=== PATIENT | female | born 2005 | race Caucasian/White ===

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

== ENCOUNTER 2023-02-04 19:56 | Emergency (ER) | payer BC, MEDICAID, SELFPAY ==
[2023-02-04 20:02] VITALS: BP 128/75; PULSE 102; RESP 16; TEMP 36.7; O2SAT 99
--- NOTE | 2023-02-04 20:08 | W.ED.SKABFB ---
HPI - Skin/Abscess/Foreign Bdy General: Chief complaint: Skin/Abscess/Foreign Body Stated complaint: possible tattoo infection on left hand Time Seen by Provider: 02/04/23 20:08 History of Present Illness: 17-year-old female comes in today with redness and swelling to the left dorsal left hand at the site of a tattoo. Patient had a tattoo done 2 to 3 days ago. Patient has had increasing redness and swelling since then. Patient was concerned for infection due to increased pain of the dorsal index finger. Patient reports no fever. Patient denies any chronic medical problems. Associated symptoms: Deny fever(s) Review of Systems General: Reports: 10 or more systems reviewed and unremarkable except in HPI and below Const: Denies: fever(s) Skin/Breast: Reports: erythema PFSH ED PFSH: Social History Smoking and tobacco status: current every day smoker Physical Exam Const: COMMON NORMALS: alert HENMT: COMMON NORMALS: normocephalic HEAD & SCALP: normocephalic Neck/C-Spine: COMMON NORMALS: full ROM Resp: COMMON NORMALS: normal respiratory effort Cardio: COMMON NORMALS: regular rate RATE: regular rate Extremity: LEFT UPPER EXTREMITY: Yes hand & digits (Redness and swelling with tenderness along the lines of tattoo.) Neuro: SENSORIUM/ORIENTATION: Yes alert Skin: NARRATIVE SKIN EXAM: Redness to the tattoo with increased swelling dorsal left hand Course Vital Signs: Vital signs: Vital Signs Temperature 98.0 F 02/04/23 20:02 Pulse Rate 102 H 02/04/23 20:02 Respiratory Rate 16 02/04/23 20:02 Blood Pressure 128/75 02/04/23 20:02 Pulse Oximetry 99 02/04/23 20:02 Oxygen Delivery Me thod Room Air 02/04/23 20:02 MDM - Skin/Abscess/Foreign Bdy Medicial Decision Making 17-year-old female comes in with a probable wound infection to the dorsal left hand along a tattoo line. Patient has an area of the tattoo which has increased redness and swelling. Patient reports increased pain today. Differential diagnosis includes but not limited to local reaction to tattoo art, allergic reaction tattoo ink, wound infection. We will place patient on mupirocin ointment to the tattoo site, and oral Augmentin. Patient reported understanding of care plan and need for follow-up or return to the ER. No radiology studies performed this visit Discharge Plan Discharge Patient Disposition: Home Clinical Impression: Cellulitis Qualifiers: Site of cellulitis: extremity Site of cellulitis of extremity: upper extremity Laterality: left Qualified Code(s): L03.114 - Cellulitis of left upper limb Condition: Stable Prescriptions: New amoxicillin-pot clavulanate 875-125 mg tablet 1 tab PO BID Qty: 14 0RF No Action vit,waldo [id number] 28 mg iron- 1 mg tablet 1 tab PO DAILY Qty: 90 3RF Discharge Orders: Discharge ED (Routine); Ordered 02/04/23 Ordered By: Stanley Baltazar Discharge Diet: Usual diet Discharge Activity: Increase activity as tolerated Patient Instructions: Cellulitis (ED) Activity Restrictions/Additional Instructions: Clean the skin with mild soap and water twice a day. Apply antibiotic ointment after cleaning twice a day. Take oral antibiotics 1 tablet twice a day for the next 7 days. Drink plenty of water with medication. Follow-up with primary care for further instruction. Return to ER for worsening symptoms such as fever greater than 100.4, persistent nausea and vomiting, increasing redness and swelling to the hand. Coding Level of Care Code ED Insurance Sales Associate for Stephanie Ortiz
[2023-02-04] MEDS: amoxicillin-clav 875-125 mg Tablet 1 TAB PO (20:16)
[2023-02-04] MEDS: mupirocin oint 22 gm 1 APPLIC TOPICAL (20:16)
[2023-02-04 20:23] VITALS: PULSE 83; RESP 14; O2SAT 97
== END 2023-02-04 20:24 | disposition home or self-care (01) ==
PROVIDERS: Emergency Provider Nurse Practitioner Family
DX: L03.114 Cellulitis of left upper limb (principal); F17.210 Nicotine dependence, cigarettes, uncomplicated
CPT/HCPCS: 99283

== ENCOUNTER 2023-12-02 14:11 | Inpatient (IN) | payer BC, MEDICAID, SELFPAY ==
[2023-12-02 14:18] VITALS: BP 131/84; PULSE 97; RESP 14; TEMP 36.9; O2SAT 97
--- NOTE | 2023-12-02 14:30 | ED.C_ITS ---
HPI - Psych 2 General: Chief Complaint: Psychiatric Symptoms Stated Complaint: MHE Time Seen by Provider: 12/02/23 14:14 Source: patient Mode of arrival: ambulatory Limitations: no limitations History of Present Illness: 17-year-old female who states that she h as been severely depressed over the last week she states she feels like she is having a breakdown and wants to get help. States she has had passing thoughts of harming herself and feels like that will be better off without her but has no specific suicidal plan. She is not on any meds currently denies any worse improved factors Associated symptoms: Reports depression Review of Systems 2 Const: Denies: fever(s), chills, body aches or change in appetite ENMT: Denies: throat pain or dental pain Card: Denies: chest pain Resp: Denies: dyspnea GI: Denies: abdominal pain, nausea, vomiting or diarrhea Musc: Denies: neck pain or back pain Skin/Breast: Denies: rash Neuro: Denies: headache(s) Psych: Reports: depression [facility] ED 2 PFSH: Social History Smoking and tobacco/nicotine status: current every day tobacco/nicotine user Physical Exam 2 Const: COMMON NORMALS: no acute distress, patient oriented x3 and healthy appearing HENMT: COMMON NORMALS: normocephalic and atraumatic HEAD & SCALP: n ormocephalic and atraumatic Neck/C-Spine: COMMON NORMALS: full ROM and supple Chest: COMMONS NORMALS: normal inspection of the chest Resp: COMMON NORMALS: normal respiratory effort Cardio: COMMON NORMALS: regular rate, regular rhythm and No murmurs present (Cardio) RATE: regular rate RHYTHM: regular rhythm Extremity: COMMON NORMALS: normal to inspection Neuro: COMMON NORMALS: patient oriented x3, moves all extremities and no focal motor deficits Psych: COMMON NORMALS: mental status grossly normal, Normal thought process present and cooperative MOOD & AFFECT: Yes depressed mood THOUGHT PROCESS: Normal thought process present Skin: COMMON NORMALS: no rashes or lesions noted and no wounds GENERAL SKIN EXAM: no rashes or lesions noted Course 2 Vital Signs: Vital signs: Vital Signs Temperature 98.4 F 12/02/23 14:18 Pulse Rate 87 12/02/23 16:53 Respiratory Rate 14 12/02/23 14:18 Blood Pressure 134/83 12/02/23 16:53 Pulse Oximetry 100 12/02/23 16:53 Oxygen Delivery Me thod Room Air 12/02/23 16:53 MDM - Psych Medical Decision Making Patient presents for severe depression she voluntarily wants to be admitted to the psych weller she is medically cleared I spoke to Dr. Sinha will admit her at this time Medical Records I reviewed the patient's medical records. Lab Data I reviewed the patient's lab results. 12/02/23 14:31 12/02/23 14:31 Laboratory Results WBC 11.29 10^3/uL (4.5-13.0) 12/02/23 14:31 RBC 5.33 10^6/uL (3.85-5.65) 12/02/23 14:31 Hgb 15.50 g/dL (12.4-14.8) H 12/02/23 14:31 Hct 45.5 % (36-47) 12/02/23 14:31 MCV 85.4 fl (85-98) 12/02/23 14:31 MCH 29.1 pg (27-33) 12/02/23 14:31 MCHC 34.1 g/dL (30-55) 12/02/23 14:31 RDW 12.6 % (12.1-15.1) 12/02/23 14:31 Plt Count 295 10^3/cmm (157-399) 12/02/23 14:31 MPV 9.3 fL (7.4-10.4) 12/02/23 14:31 Neut % (Auto) 64.2 % 12/02/23 14:31 Lymph % (Auto) 24.1 % 12/02/23 14:31 [place] % (Auto) 7.5 % 12/02/23 14:31 Eos % (Auto) 3.3 % 12/02/23 14:31 Baso % (Auto) 0.7 % 12/02/23 14:31 Neut # (Auto) 7.25 10^3/uL (1.8-8.0) 12/02/23 14:31 Lymph # (Auto) 2.7 10^3/uL (1.5-6.5) 12/02/23 14:31 [place] # (Auto) 0.9 10^3/uL (0.2-0.9) 12/02/23 14:31 Eos # (Auto) 0.4 10^3/uL (0.0-0.8) 12/02/23 14:31 Baso # (Auto) 0.1 10^3/uL (0.0-0.1) 12/02/23 14:31 Nucleated RBC % (auto) 0 % 12/02/23 14:31 Nucleated RBCs # 0.0 /100WBC 12/02/23 14:31 Sodium 137 mmol/L (136-145) 12/02/23 14:31 Potassium 3.8 mmol/L (3.5-5.1) 12/02/23 14:31 Chloride 101 mmol/L (98-107) 12/02/23 14:31 Carbon Dioxide 21 mmol/L (22-29) L 12/02/23 14:31 Anion Gap 18.8 (5-19) 12/02/23 14:31 BUN 12 mg/dL (6-20) 12/02/23 14:31 Creatinine 0.7 mg/dL (0.5-0.9) 12/02/23 14:31 GFR Calculation 107.8 mL/min (90-130) 12/02/23 14:31 Glucose 95 mg/dL (65-115) 12/02/23 14:31 Calculated Osmolality 284 mOsm/kg (285-295) L 12/02/23 14:31 Calcium 10.3 mg/dL (8.5-10.5) 12/02/23 14:31 Total Bilirubin 0.3 mg/dL (0.15-1.2) 12/02/23 14:31 AST 14 U/L (0-32) 12/02/23 14:31 ALT 11 U/L (0-33) 12/02/23 14:31 Alkaline Phosphatase 92 U/L (35-105) 12/02/23 14:31 Total Protein 8.4 g/dL (6.6-8.7) 12/02/23 14:31 Albumin 5.0 g/dL (3.5-5.2) 12/02/23 14:31 Globulin 3.4 g/dL (1.3-4.6) 12/02/23 14:31 HCG, Qual Negative (Negative) 12/02/23 15:11 Salicylates < 0.3 mg/dL (3-10) L 12/02/23 14:31 Urine Opiates Screen Negative ng/mL (Negative) 12/02/23 15:14 Acetaminophen < 5.0 ug/mL (10-30) L 12/02/23 14:31 Ur Barbiturates Screen Negative ng/mL (Negative) 12/02/23 15:14 Ur Phencyclidine Scrn Negative ng/mL (Negative) 12/02/23 15:14 Ur Amphetamines Screen Negative ng/mL (Negative) 12/02/23 15:14 U Benzodiazepines Scrn Negative ng/mL (Negative) 12/02/23 15:14 Urine Cocaine Screen Negative ng/mL (Negative) 12/02/23 15:14 U Marijuana (THC) Screen Positive ng/mL (Negative) H 12/02/23 15:14 Ethyl Alcohol < 10 mg/dL (0-10) 12/02/23 14:31 No radiology studies performed this visit Discharge Plan Discharge Patient Disposition: Admitted As Inpatient Admit Provider: Sridhar Sinha Clinical Impression: Depression Condition: Stable Coding Level of Care Code ED Staff Nurse for Stephanie Ortiz
[2023-12-02 14:37] LABS: Basophils # 0.1 10^3/uL (0.0-0.1); Basophils % 0.7 %; Eosinophils # 0.4 10^3/uL (0.0-0.8); Eosinophils % 3.3 %; Hematocrit 45.5 % (36-47); Lymphocytes # 2.7 10^3/uL (1.5-6.5); Lymphocytes % 24.1 %; Mean Corpuscular HGB Conc 34.1 g/dL (30-55); Mean Corpuscular Hemoglobin 29.1 pg (27-33); Mean Corpuscular Volume 85.4 fl (85-98); Mean Platelet Volume 9.3 fL (7.4-10.4); Monocytes # 0.9 10^3/uL (0.2-0.9); Monocytes % 7.5 %; Neutrophils # 7.25 10^3/uL (1.8-8.0); Neutrophils % 64.2 %; Nucleated Red Blood Cells % 0 %; Platelet Count 295 10^3/cmm (157-399); Red Blood Count 5.33 10^6/uL (3.85-5.65); Red Cell Distribution Width 12.6 % (12.1-15.1); White Blood Count 11.29 10^3/uL (4.5-13.0)
[2023-12-02 14:58] LABS: Alanine Aminotransferase 11 U/L (0-33); Alkaline Phosphatase 92 U/L (35-105); Anion Gap 18.8 (5-19); Aspartate Amino Transferase 14 U/L (0-32); Blood Urea Nitrogen 12 mg/dL (6-20); Calcium 10.3 mg/dL (8.5-10.5); Carbon Dioxide 21 mmol/L (22-29); Chloride 101 mmol/L (98-107); Creatinine Clr Calc Pharmacy 101.2517; Globulin 3.4 g/dL (1.3-4.6); Glomerular Filtration Rate 107.8 mL/min (90-130); Glucose 95 mg/dL (65-115); Osmolality Calculated 284 mOsm/kg (285-295); Potassium 3.8 mmol/L (3.5-5.1); Sodium 137 mmol/L (136-145); Total Bilirubin 0.3 mg/dL (0.15-1.2); Total Protein 8.4 g/dL (6.6-8.7)
[2023-12-02 14:59] LABS: Acetaminophen < 5.0 ug/mL (10-30); Alcohol Level < 10 mg/dL (0-10); Salicylate < 0.3 mg/dL (3-10)
[2023-12-02] MEDS: LORazepam 2 mg Tablet PO (15:05)
[2023-12-02 15:23] LABS: HCG Qualitative Urine. Negative (Negative)
[2023-12-02 15:40] LABS: Amphetamines Screen Urine Negative (Negative); Barbiturates Screen Urine Negative (Negative); Benzodiazepines Screen Urine Negative (Negative); Cocaine Screen Urine Negative (Negative); Opiate Screen Urine Negative (Negative); PCP Screen Urine Negative (Negative); THC Screen Urine Positive (Negative)
[2023-12-02 16:53] VITALS: BP 134/83; PULSE 87; O2SAT 100
[2023-12-02 18:10] VITALS: BP 125/87; PULSE 90; RESP 16; TEMP 36.4; O2SAT 99
--- NOTE | 2023-12-02 19:40 | PC.ADMIT ---
[address] Admission Note: The patient,Malini David,17 y/o, was given written information regarding hospital policies, unit procedures and contact persons. Patient's smoking status: current every day smoker. TOBACCO AND VAPES Vital Signs - 8 hr 12/02/23 14:18 12/02/23 16:53 12/02/23 18:10 Temperature 98.4 F 97.5 F L Pulse Rate 97 87 90 Respiratory Rate 14 16 Blood Pressure 131/84 134/83 125/87 Pulse Oximetry 97 100 99 Oxygen Delivery Method Room Air Room Air 12/02/23 19:00 Temperature Pulse Rate Respiratory Rate Blood Pressure Pulse Oximetry Oxygen Delivery Method Room Air ADMITTED TO NPU VIA WHEELCHAIR WITH SECURITY AND ER STAFF AT 1809. PT IS VOLUNTARY STATUS AT THIS TIME. PT STATES SHE IS HERE BECAUSE I DON'T FEEL LIKE SHOULD. I HARM MYSELF BECAUSE I DON'T WANT TO FEEL EMOTIONAL PAIN, JUST PHYSICAL. PT IS OBSERVED TO HAVE GENERALIZED BUG BITES TO BILATERAL LOWER EXTREMITIES. SEE PHYSICAL ASSESSMENT FOR DETAILS OF SKIN ISSUES. PT CURRENTLY DENIES SI/HI AND AVH AT THIS TIME. PT DOES REPORT TO RN THAT SHE DOES SELF HARM AND THE MAJORITY OF SKIN ISSUES ARE SELF INJURIOUS BEHAVIOR. PT WAS POSITIVE FOR THC AND DOES ADMIT TO USING MARIJUANA DAILY. PT DENIES ANY OTHER DRUG USE. PT WAS TEARFUL DURING ASSESSMENT. PT DOES ENDORSE WANTING HELP. TAKES NO MEDICATIONS AT THIS TIME AND HAS HAD NO PSYCHIATRIC ADMISSIONS. PT IS OPEN TO PHARMACEUTICAL INTERVENTIONS AND THERAPY IF RECOMMENDED. PT ORIENTATED TO UNIT. DENIES PAIN. ALL QUESTIONS ANSWERED AND SUPPORT VOICED.
[2023-12-02] MEDS: nicotine 2 mg Gum BUCCAL (20:15)
[2023-12-02 20:52] VITALS: BP 119/87; PULSE 78; RESP 16; TEMP 36.9; O2SAT 98
[2023-12-03 06:00] VITALS: BP 115/72; PULSE 82; RESP 15; TEMP 36.4; O2SAT 95
[2023-12-03] MEDS: nicotine 2 mg Gum BUCCAL ×4 (07:44→20:52)
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
[2023-12-03 14:00] VITALS: BP 117/78; PULSE 78; RESP 16; TEMP 36.8; O2SAT 98
[2023-12-03] MEDS: fluoxetine 20 mg Capsule PO (16:47)
[2023-12-03] MEDS: acetaminophen 325 mg Tablet 650 MG PO (18:20)
[2023-12-03 21:41] VITALS: BP 120/83; PULSE 75; RESP 18; TEMP 36.7; O2SAT 97
[2023-12-04 06:00] VITALS: BP 110/76; PULSE 72; RESP 16; TEMP 37; O2SAT 98
[2023-12-04] MEDS: fluoxetine 20 mg Capsule PO (08:22)
[2023-12-04] MEDS: nicotine 2 mg Gum BUCCAL ×3 (08:22→20:17)
[2023-12-04] MEDS: ibuprofen 600 mg Tablet PO (11:37)
[2023-12-04 14:00] VITALS: BP 107/71; PULSE 77; RESP 15; TEMP 36.8; O2SAT 98
--- NOTE | 2023-12-04 14:20 | P.NPUPN_ITS ---
Subjective NPU 2 Subjective: Patient presented today reporting that she was doing a little better. She reports that she is tolerating the medication though she does report that it may be is making her a little tired. See a chance to meet with her aunt and her father who are 2 of her supports. She reports that she is feeling really optimistic that the medication is going to be helpful and that with appropriate follow-up things can get a lot better. She denied any additional side effects to the medication. Mental Status Exam 2 MSE Comments: This is a short well-nourished well-developed white female in hospital scrubs with limited grooming but adequate eye contact. She had normal gait with no abnormal movements except for mild psychomotor retardation. She was cooperative with exam in mild distress. Her speech was more normal rate, volume and rhythm. Her mood was described as feeling better, her affect was congruent . Her thought process was organized and goal-directed. Thought content: She denied suicidal or homicidal ideation. There were no delusions reported or noted. She denied any auditory or visual hallucinations. She denied current thoughts of self-harm or harm to others. She reported feeling paranoid at times, such as needing her car to face a certain way due to fear of something coming out of the [place]. She also reported hearing voices calling her name when no one was around. Attention and concentration were intact and memory was reliable but none were formally tested. She is alert and oriented x 3. Insight was good and judgment was limited and impulse control was limited versus impaired. Vitals/I&O/Wt Last Vital Signs Temp 98.6 F 12/04/23 06:00 Pulse 72 12/04/23 06:00 Resp 16 12/04/23 06:00 BP 110/76 12/04/23 06:00 Pulse Ox 98 12/04/23 06:00 O2 Del Method Room Air 12/04/23 06:00 Data NPU 12/02/23 14:31 12/02/23 14:31 A&P Assessment and plan (1) Major depressive disorder, recurrent: (2) PTSD (post-traumatic stress disorder): (3) Parent-child relational problem: (4) Anxiety: (5) Cannabis use disorder: Plan This is a 18-year-old, white female, with significant history of mental health issues whose, addiction issues and significant trauma without significant psychiatric/mental health treatment who presents after conflicts led to self- injurious behavior which has been present previously and concerns for her safety. She endorsed an openness to a trial of medication. The patient presents with a history of depression, self-harm, and trauma. She has a history of substance use, including daily cannabis and cigarette use and past heavy drinking. She has a desire for help and is open to medication, although she has concerns about potential weight gain from medication. RECOMMENDATION AND PLAN: 1.? Started Prozac 20 mg po q daily. 2.? Encourage individual, group, and milieu therapy. 3.? Continue q-15 minute checks for safety. 4.? Encourage sober living treatment, after discharge, at the highest level of care, to which he is willing to commit. 5. Work with social work team on resources to assist her with outpatient follow-up. Involuntary Hold Information 2 96 Hour Hold: 96 Hour Involuntary Admission: No Attestations NPU 2 Medical Necessity Statement*: Inpatient hospitalization is medically necessary and the clinically appropriate intervention, at this time. We will monitor medications and make changes as indicated. Likely length of stay is 2-4 days. Coding Level of Care Code Acute Code for [facility] Fwd Diagnoses Major depressive disorder, recurrent F33.9 PTSD (post-traumatic stress disorder) F43.10 Parent-child relational problem Z62.820 Anxiety F41.9 Cannabis use disorder F12.90
[2023-12-04] MEDS: trazodone 50 mg Tablet PO (20:17)
[2023-12-04 20:56] VITALS: BP 124/90; PULSE 76; RESP 16; TEMP 36.7; O2SAT 98
[2023-12-05 06:00] VITALS: RESP 16
[2023-12-05] MEDS: fluoxetine 20 mg Capsule PO (08:02)
[2023-12-05] MEDS: nicotine 2 mg Gum BUCCAL ×4 (08:51→21:11)
[2023-12-05 14:00] VITALS: BP 117/78; PULSE 75; RESP 16; TEMP 36.9; O2SAT 98
--- NOTE | 2023-12-05 14:23 | P.NPUPN_ITS ---
Subjective NPU 2 Subjective: Patient presented today reporting she is continuing to feel better each day and was excited about the discussion will likely discharge tomorrow. She reports that her overall outlook is improving and she denied any side effects of the medication. We discussed the social work team regarding tomorrow and asked making sure she has appropriate outpatient services prior to discharge. Mental Status Exam 2 MSE Comments: This is a short well-nourished well-developed white female in hospital scrubs with limited grooming but adequate eye contact. She had normal gait with no abnormal movements except for mild psychomotor retardation. She was cooperative with exam in no acute distress. Her speech was more normal rate, volume and rhythm. Her mood was described as feeling better, her affect was congruent . Her thought process was organized and goal-directed. Thought content: She denied suicidal or homicidal ideation. There were no delusions reported or noted. She denied any auditory or visual hallucinations. She denied current thoughts of self-harm or harm to others. She reported feeling paranoid at times, such as needing her car to face a certain way due to fear of something coming out of the [place]. Attention and concentration were intact and memory was reliable but none were formally tested. She is alert and oriented x 3. Insight was good and judgment was limited and impulse control was limited but improving. Vitals/I&O/Wt Last Vital Signs Temp 98.0 F 12/04/23 20:56 Pulse 76 12/04/23 20:56 Resp 16 12/05/23 06:00 BP 124/90 12/04/23 20:56 Pulse Ox 98 12/04/23 20:56 O2 Del Method Room Air 12/04/23 06:00 Weight last 48 hrs Weight 54.93 kg Data NPU 12/02/23 14:31 12/02/23 14:31 A&P Assessment and plan (1) Major depressive disorder, recurrent: (2) PTSD (post-traumatic stress disorder): (3) Parent-child relational problem: (4) Anxiety: (5) Cannabis use disorder: Plan This is a 18-year-old, white female, with significant history of mental health issues whose, addiction issues and significant trauma without significant psychiatric/mental health treatment who presents after conflicts led to self- injurious behavior which has been present previously and concerns for her safety. She endorsed an openness to a trial of medication. The patient presents with a history of depression, self-harm, and trauma. She has a history of substance use, including daily cannabis and cigarette use and past heavy drinking. She has a desire for help and is open to medication, although she has concerns about potential weight gain from medication. RECOMMENDATION AND PLAN: 1.? Started Prozac 20 mg po q daily. 2.? Encourage individual, group, and milieu therapy. 3.? Continue q-15 minute checks for safety. 4.? Encourage sober living treatment, after discharge, at the highest level of care, to which he is willing to commit. 5. Work with social work team on resources to assist her with outpatient follow-up. Involuntary Hold Information 2 96 Hour Hold: 96 Hour Involuntary Admission: No Attestations NPU 2 Medical Necessity Statement*: Inpatient hospitalization is medically necessary and the clinically appropriate intervention, at this time. We will monitor medications and make changes as indicated. Likely length of stay is 1-3 days. Coding Level of Care Code Acute Code for [facility] Fwd Diagnoses Major depressive disorder, recurrent F33.9 PTSD (post-traumatic stress disorder) F43.10 Parent-child relational problem Z62.820 Anxiety F41.9 Cannabis use disorder F12.90
[2023-12-05 20:23] VITALS: BP 124/79; PULSE 71; RESP 18; TEMP 37.2; O2SAT 98
[2023-12-05] MEDS: trazodone 50 mg Tablet PO (21:11)
[2023-12-06 06:00] VITALS: BP 108/72; PULSE 70; RESP 16; TEMP 36.7; O2SAT 98
--- NOTE | 2023-12-06 06:31 | W.PM.NPUDCS ---
Diagnoses at Discharge Discharge Diagnosis (1) Major depressive disorder, recurrent: Status: Acute (2) PTSD (post-traumatic stress disorder): Status: Acute (3) Parent-child relational problem: Status: Acute (4) Anxiety: Status: Acute (5) Cannabis use disorder: Status: Acute Reason for Visit Reason for Visit: MHE Involuntary Hold Information 96 Hour Hold: 96 Hour Involuntary Admission: No Mental Status Exam MSE Comments: This is a short well-nourished well-developed white female in hospital scrubs with limited grooming but adequate eye contact. She had normal gait with no abnormal movements except for mild psychomotor retardation. She was cooperative with exam in no acute distress. Her speech was more normal rate, volume and rhythm. Her mood was described as feeling better, her affect was congruent . Her thought process was organized and goal-directed. Thought content: She denied suicidal or homicidal ideation. There were no delusions reported or noted. She denied any auditory or visual hallucinations. She denied current thoughts of self-harm or harm to others. She reported feeling paranoid at times, such as needing her car to face a certain way due to fear of something coming out of the [place]. Attention and concentration were intact and memory was reliable but none were formally tested. She is alert and oriented x 3. Insight was good and judgment was limited and impulse control was limited but improving. Discharge Data Studies Completed and Pending: Laboratory Results WBC 11.29 10^3/uL (4. 5-13.0) 12/02/23 14:31 RBC 5.33 10^6/uL (3.8 5-5.65) 12/02/23 14:31 Hgb 15.50 g/dL (12.4- 14.8) H 12/02/23 14:31 Hct 45.5 % (36-47) 12/02/23 14:31 MCV 85.4 fl (85-98) 12/02/23 14:31 MCH 29.1 pg (27-33) 12/02/23 14:31 MCHC 34.1 g/dL (30-55) 12/02/23 14:31 RDW 12.6 % (12.1-15.1 ) 12/02/23 14:31 Plt Count 295 10^3/cmm (157 -399) 12/02/23 14:31 MPV 9.3 fL (7.4-10.4) 12/02/23 14:31 Neut % (Auto) 64.2 % 12/02/23 14:31 Lymph % (Auto) 24.1 % 12/02/23 14:31 [place] % (Auto) 7.5 % 12/02/23 14:31 Eos % (Auto) 3.3 % 12/02/23 14:31 Baso % (Auto) 0.7 % 12/02/23 14:31 Neut # (Auto) 7.25 10^3/uL (1.8 -8.0) 12/02/23 14:31 Lymph # (Auto) 2.7 10^3/uL (1.5- 6.5) 12/02/23 14:31 [place] # (Auto) 0.9 10^3/uL (0.2- 0.9) 12/02/23 14:31 Eos # (Auto) 0.4 10^3/uL (0.0- 0.8) 12/02/23 14:31 Baso # (Auto) 0.1 10^3/uL (0.0- 0.1) 12/02/23 14:31 Nucleated RBC % (a uto) 0 % 12/02/23 14:31 Nucleated RBCs # 0.0 /100WBC 12/02/23 14:31 Sodium 137 mmol/L (136-1 45) 12/02/23 14:31 Potassium 3.8 mmol/L (3.5-5 .1) 12/02/23 14:31 Chloride 101 mmol/L (98-10 7) 12/02/23 14:31 Carbon Dioxide 21 mmol/L (22-29) L 12/02/23 14:31 Anion Gap 18.8 (5-19) 12/02/23 14:31 BUN 12 mg/dL (6-20) 12/02/23 14:31 Creatinine 0.7 mg/dL (0.5-0. 9) 12/02/23 14:31 GFR Calculation 107.8 mL/min (90- 130) 12/02/23 14:31 Glucose 95 mg/dL (65-115) 12/02/23 14:31 Calculated Osmolal ity 284 mOsm/kg (285- 295) L 12/02/23 14:31 Calcium 10.3 mg/dL (8.5-1 0.5) 12/02/23 14:31 Total Bilirubin 0.3 mg/dL (0.15-1 .2) 12/02/23 14:31 AST 14 U/L (0-32) 12/02/23 14:31 ALT 11 U/L (0-33) 12/02/23 14:31 Alkaline Phosphata se 92 U/L (35-105) 12/02/23 14:31 Total Protein 8.4 g/dL (6.6-8.7 ) 12/02/23 14:31 Albumin 5.0 g/dL (3.5-5.2 ) 12/02/23 14:31 Globulin 3.4 g/dL (1.3-4.6 ) 12/02/23 14:31 HCG, Qual Negative (Negati ve) 12/02/23 15:11 Salicylates < 0.3 mg/dL (3-10 ) L 12/02/23 14:31 Urine Opiates Scre en Negative ng/mL (N egative) 12/02/23 15:14 Acetaminophen < 5.0 ug/mL (10-3 0) L 12/02/23 14:31 Ur Barbiturates Sc reen Negative ng/mL (N egative) 12/02/23 15:14 Ur Phencyclidine S crn Negative ng/mL (N egative) 12/02/23 15:14 Ur Amphetamines Sc reen Negative ng/mL (N egative) 12/02/23 15:14 U Benzodiazepines Scrn Negative ng/mL (N egative) 12/02/23 15:14 Urine Cocaine Scre en Negative ng/mL (N egative) 12/02/23 15:14 U Marijuana (THC) Screen Positive ng/mL (N egative) H 12/02/23 15:14 Ethyl Alcohol < 10 mg/dL (0-10) 12/02/23 14:31 Vitals: Last Vital Signs Temp 98.1 F 12/06/23 06:00 Pulse 70 12/06/23 06:00 Resp 16 12/06/23 06:00 BP 108/72 12/06/23 06:00 Pulse Ox 98 12/06/23 06:00 O2 Del Method Room Air 12/06/23 06:00 Discharge Plan Discharge Condition: Stable Prescriptions: New trazodone 50 mg Tablet 50 mg PO BEDTIME PRN (Reason: Sleep) 30 Days Qty: 30 1RF fluoxetine 20 mg Capsule 20 mg PO DAILY 30 Days Qty: 30 1RF No Action No Known Home Medications Discharge Orders: Discharge Order (Routine); Ordered 12/06/23 Ordered By: Sridhar Sinha Discharge Diet: Regular Discharge Activity: Resume usual activity Patient Instructions: Opioid Safety Discharge Attestations NPU Time Spent in Discharge Care*: less than 30 min Specific Discharge Activities: Specific discharge activities: educating patient, discussing with community case manager/social workers/dc planners, documenting/other paperwork and evaluating patient/reviewing data Coding Level of Care Code Acute Code for [facility] Fwd Diagnoses Major depressive disorder, recurrent F33.9 PTSD (post-traumatic stress disorder) F43.10 Parent-child relational problem Z62.820 Anxiety F41.9 Cannabis use disorder F12.90
[2023-12-06 07:30] VITALS: BP 108/72; PULSE 70; RESP 16; TEMP 36.7; O2SAT 98
[2023-12-06] MEDS: fluoxetine 20 mg Capsule PO (08:04)
[2023-12-06] MEDS: nicotine 2 mg Gum BUCCAL ×2 (08:04→10:59)
== END 2023-12-06 11:55 | disposition home or self-care (01) | DRG 885 ==
LOC: ER 15:07 → NP 16:00
PROVIDERS: Admitting Provider Psychiatry & Neurology Psychiatry; Emergency Provider Emergency Medicine; Visit Provider Psychiatry & Neurology Psychiatry
DX: F33.9 Major depressive disorder, recurrent, unspecified (principal); F43.10 Post-traumatic stress disorder, unspecified; F41.9 Anxiety disorder, unspecified; Z72.0 Tobacco use; Z91.52 Personal history of nonsuicidal self-harm; Z62.810 Personal history of physical and sexual abuse in childhood; F12.90 Cannabis use, unspecified, uncomplicated; Z62.820 Parent-biological child conflict
CPT/HCPCS: 80053; 80306; 80307; 81025; 85025; 97150; 97165; 99285